=== PATIENT | male | born 1950 | race Caucasian/White ===

== ENCOUNTER 2020-02-01 15:47 | Outpatient (REF) | payer MEDICARE, BC, SELFPAY ==
[2020-02-02 08:34] LABS: PSA, Screening 5.1 ng/mL (0.0-4.5)
== END 2020-02-01 16:07 ==
LOC: NCHCN 15:47
PROVIDERS: PCP Physician Assistant; Visit Provider Physician Assistant
DX: N40.0 Benign prostatic hyperplasia without lower urinary tract symptoms (principal); Z12.5 Encounter for screening for malignant neoplasm of prostate
CPT/HCPCS: 84153

== ENCOUNTER 2020-03-27 15:34 | Outpatient (REF) | payer MEDICARE, SELFPAY ==
[2020-03-27 19:41] LABS: Calculated LDL 145 mg/dL (<100); Cholesterol 238 mg/dL (<200); HDL Cholesterol 71 mg/dL (40-60); Triglyceride 112 mg/dL (<150)
[2020-03-29 09:20] LABS: PSA, Screening 5.2 ng/mL (0.0-4.5)
== END 2020-03-27 15:54 ==
LOC: NCHCN 15:34
PROVIDERS: PCP Physician Assistant; Visit Provider Physician Assistant
DX: N40.0 Benign prostatic hyperplasia without lower urinary tract symptoms (principal); Z12.5 Encounter for screening for malignant neoplasm of prostate; E78.5 Hyperlipidemia, unspecified
CPT/HCPCS: 80061; 84153

== ENCOUNTER 2020-09-30 19:00 | Outpatient (REF) | payer MEDICARE, SELFPAY ==
[2020-09-30 14:03] LABS: Calculated LDL 147 mg/dL (<100); Cholesterol 240 mg/dL (<200); HDL Cholesterol 82 mg/dL (40-60); Triglyceride 55 mg/dL (<150)
[2020-09-30 22:33] LABS: PSA, Screening 5.1 ng/mL (0.0-4.5)
== END 2020-09-30 19:20 ==
LOC: NCHCN 19:00
PROVIDERS: PCP Physician Assistant; Visit Provider Physician Assistant
DX: N40.0 Benign prostatic hyperplasia without lower urinary tract symptoms (principal); E78.5 Hyperlipidemia, unspecified
CPT/HCPCS: 80061; 84153

== ENCOUNTER 2020-10-31 11:35 | Outpatient (REF) | payer MEDICARE, SELFPAY ==
[2020-10-31 15:28] LABS: HCT 42.2 % (40.0-50.0); HGB 14.1 g/dL (13.5-17.5); MCH 31.8 pg (27.0-33.0); MCHC 33.4 % (32.0-36.0); MCV 95.3 fL (80-95); MPV 10.9 fL (8.0-11.0); Platelet Count 263 10^3/uL (130-400); RBC 4.43 10^6/uL (4.36-5.78); RDW 13.2 % (11.8-14.1); RDW-SD 46.5 fL; WBC 8.05 10^3/uL (4.4-10.8)
[2020-10-31 15:31] LABS: ALT 19 U/L (16-63); AST 19 U/L (15-37); Alkaline Phosphatase 87 U/L (46-116); BUN 21 mg/dL (7-18); Bilirubin, Total 0.9 mg/dL (0.2-1.0); CREATININE 1.2 mg/dL (0.70-1.30); Calcium 9.3 mg/dL (8.5-10.1); Chloride 105 mmol/L (98-107); Glucose 92 mg/dL (74-106); Potassium 4.4 mmol/L (3.5-5.1); Sodium 143 mmol/L (136-145); Total Protein 7.8 g/dL (6.4-8.2)
[2020-10-31 22:16] LABS: PSA, Diagnostic 6.2 ng/mL (0.0-4.5)
== END 2020-10-31 11:36 | disposition home or self-care (01) ==
LOC: NCHCN 11:35
PROVIDERS: PCP Physician Assistant; Visit Provider Physician Assistant
DX: R10.9 Unspecified abdominal pain (principal); R30.0 Dysuria
CPT/HCPCS: 80053; 85027; 84153

== ENCOUNTER 2020-11-04 00:19 | Outpatient (CLI) | payer MEDICARE, SELFPAY ==
[2020-11-04] MEDS: Omnipaque 350 MG/ML 50 ML BTL IJ (08:37)
[2020-11-04] MEDS: Breeza Beverage 473 ML BTL PO ×2 (08:37→08:38)
[2020-11-04] MEDS: Normal Saline - Diluent 50 ML VIAL IV (10:37)
[2020-11-04] MEDS: Omnipaque 350 MG/ML 100 ML BTL IJ (10:38)
--- NOTE | 2020-11-04 10:39 | DI.CT_ITS ---
EXAM: CT ABDOMEN PELVIS W CLINICAL HISTORY: ABD PAIN, R10.9. TECHNIQUE: Imaging Protocol: Axial computed tomography images with coronal and sagittal reformatted images were created and reviewed CONTRAST MATERIAL: Intravenous: Omnipaque 100cc Oral: None COMPARISON: No exams were available for comparison FINDINGS: VISUALIZED LUNG BASES: No nodules nor pleural effusions evident. ABDOMEN: There is no ascites. LIVER: There is a benign-appearing cyst in the left hepatic lobe which measures 2 by 1.6 cm. No othe r significant focal hepatic findings nor dilatation of intrahepatic ducts. GALLBLADDER/BILIARY: No obvious gallbladder pathology. CBD is not dilated. PANCREAS: No evidence of pancreatic mass nor dilatation of the pancreatic duct. SPLEEN: Spleen is not enlarged. No obvious intrasplenic lesions. Splenic and portal veins are paten t. ADRENALS: There are no significant adrenal masses. KIDNEYS: There is impressive bilateral hydronephrosis and bilateral hydroureter. Ureters diameters a re approximately 1.6 cm bilaterally. The urinary bladder is grossly distended and trabeculated and t he prostate gland is grossly enlarged. Outlet obstruction appearance.. ABDOMINAL AORTA: Abdominal aorta is not enlarged and there is no [id number] adenopat hy. ABDOMINAL WALL/GI: No evidence of significant anterior abdominal wall hernia. No bowel obstruction. PELVIS: GI: No evidence of appendicitis.Sigmoid diverticuli. No evidence of obvious acute diverticulitis. LYMPH NODES: There is no intrapelvic nor inguinal adenopathy. REPRODUCTIVE: Prostate gland is grossly enlarged lobulated and is causing outlet obstruction. URINARY BLADDER: Grossly distended OSSEOUS: There is a subacute nondisplaced fracture of the left 11th rib with some callus formation. There is also a fracture of the left transverse process of L2, age indeterminate. No lytic osseous l esions. No blastic osseous lesions seen. IMPRESSION: 1. There is very prominent bilateral hydronephrosis and hydroureter as well as a grossly distended ur inary bladder. Prostate gland is enlarged and lobulated and is most probably causing outlet obstruct ion resulting in all of the above. Urology consultation recommended. 2. There is a solitary benign cyst in the liver-left hepatic lobe measuring 20 x 16 millimeters. No other focal hepatic findings. 3. No lytic nor blastic osseous lesions. 4. Healing left 11 rib fracture. Also fracture of L2 left transverse process, age indeterminate. RADIATION DOSE DELIVERED: Total DLP DATA REPOSITORY: All CT scans at this facility are submitted to the National Radiology Data Registry (NRDR) Dose Index Registry (DIR) with the [employer] (ACR). RADIATION OPTIMIZATION: All CT scans at this facility use at least one of these dose optimization te chniques: automated exposure control; mA and/or kV adjustment per patient size (includes targeted exa ms where dose is matched to clinical indication); or iterative reconstruction.
== END 2020-11-04 00:20 ==
PROVIDERS: PCP Physician Assistant; Visit Provider Physician Assistant
DX: N13.30 Unspecified hydronephrosis (principal); N13.4 Hydroureter; N40.0 Benign prostatic hyperplasia without lower urinary tract symptoms; K76.89 Other specified diseases of liver; S22.32XA Fracture of one rib, left side, initial encounter for closed fracture; S32.029A Unspecified fracture of second lumbar vertebra, initial encounter for closed fracture
CPT/HCPCS: 74177; J3490; Q9967

== ENCOUNTER 2020-12-22 10:38 | Emergency (ER) | payer MEDICARE, SELFPAY ==
[2020-12-22 10:44] VITALS: BP 141/90; PULSE 74; RESP 16; TEMP 35.9; O2SAT 98
[2020-12-22] MEDS: Lidocaine 2% Jelly 11 ML SYR UR (10:45)
--- NOTE | 2020-12-22 11:01 | W.ED.GENAD ---
Discharge Plan Disposition Patient Disposition: HOME Condition: Improving Discharge Details Clinical Impression: Acute urinary retention Primary Care Provider: Lv Kevin ED Provider: Randall Roberts Home Meds and New Rx's Prescriptions: Continued finasteride 5 mg tablet 5 mg PO DAILY RF: 0 Discharge Instructions Instructions: Urinary Retention in Men (ED) Additional Instructions: We will ask our care management team to arrange a follow-up for you at [facility] urology for repeat voiding trial. Leave catheter in place to leg bag until seen by urology. Return if you develop a fever, recurrent abdominal pain, or any other acute concerns. Medical Decision Making 70-year-old male presents from home. He was diagnosed with urinary bladder outlet obstruction in October for which she has been seen by the urology department at [facility]. He had an indwelling [place] catheter that was removed on Wednesday, with plan for home intermittent self-catheterization that was successful yesterday but with some difficulty. Today, patient unable to successfully self catheterize and feels suprapubic bloating and mild pressure. He has otherwise been well. Bedside bladder scanner with greater than 650 cc of retained urine. Viscous lidocaine was administered to urethra and wor[place] catheter placed by nursing staff with good return of urine. We will ask care management to assist in arranging follow-up for the patient with [facility] urology this week. He will be sent home with a leg bag. He is stable and improved. HPI General Mode of arrival: ambulatory. Date/Time Provider Initiated Documentation: 12/22/20 10:39. Limitations to Documentation: no limitations. Information obtained by: patient. History of Present Illness 70 year old M presents to the emergency department with the chief complaint of Urinary obstruction, described as moderate and similar to prior episodes, and is localized to the abdomen, pelvis and genitals. Patient reports no radiation. Patient started experiencing this hour(s) and it has been constant. No relieving factors improve symptom(s), No exacerbating factors reported . Patient notes no other symptoms.. Patient did receive the following treatments prior to arrival, none Related Data Home Medications Medication Instructions Recorded Confirmed finasteride 5 mg PO DAILY 12/22/20 12/22/20 Allergies Allergy/AdvReac Type Severity Reaction Status Date / Time No Known Allergies Allergy Unverified 12/22/20 10:50 General Stated Complaint: Urinary SANTOS: 3 Review of Systems Narrative: 6 systems reviewed and otherwise negative PFSH Social History Smoking/Tobacco Use Status: Never Smoking risk assessment performed?: Yes Drug use: Never Exam Narrative Exam Narrative: GEN: awake, alert, oriented 3. Pleasant, well groomed, interactive. HEAD: Normocephalic, atraumatic EYES: PERRL, EOMI NECK: Full ROM, no RAMSEY, no menigismus CHEST/RESP: Nontender, clear to auscultation bilateral, no wheeze/rhonchi/rales CARDIOVASCULAR: RRR, no murmur, rub olesya. 2+ Rad pulse bilateral ABDOMEN: Soft, minimal suprapubic tenderness, no mass. +Bowel sounds EXT: Full ROM, no edema, no rash Neuro: Grossly normal neurologic exam, conversant, interactive. Psych: Speech fluent, thoughts congruent, affect normal Course Vital Signs Vital signs: Vital Signs Temperature 35.9 C L 12/22/20 10:44 Pulse 74 12/22/20 10:44 Respiratory Rate 16 12/22/20 10:44 Blood Pressure 141/90 H 12/22/20 10:44 Pulse Oximetry 98 12/22/20 10:44 Temperature 35.9 C L 12/22/20 10:44 Temperature Source Skin 12/22/20 10:44 Pulse 74 12/22/20 10:44 Respiratory Rate 16 12/22/20 10:44 Respiratory Effort Non-Labored 12/22/20 10:44 Blood Pressure 141/90 H 12/22/20 10:44 Blood Pressure Position Sitting 12/22/20 10:44 Pulse Oximetry 98 12/22/20 10:44 Oxygen Delivery Method Room Air 12/22/20 10:44 Oxygen Flow Rate 0 12/22/20 10:44 Pain Level 0 12/22/20 10:44
--- NOTE | 2020-12-22 11:20 | NUR.NOTE ---
Nursing Note: Referral given to Care Management for follow up with [facility]. They are familiar with this patient. Leeanne Portillo
--- NOTE | 2020-12-23 12:28 | CMPROGNOTE_ITS ---
- If Service Date Differs Date of service: 12/23/20 Time of Service: 12:28 Care Management Progress Note Sean is seen in the ED for acute urinary retention. At the request of ED provider, CM coordinates a referral to [facility] [place] [facility] to assist patient in obtaining a follow up appointment.
== END 2020-12-22 11:38 | disposition home or self-care (01) ==
PROVIDERS: Emergency Provider Emergency Medicine; PCP Physician Assistant
DX: N40.1 Benign prostatic hyperplasia with lower urinary tract symptoms (principal); R33.8 Other retention of urine
CPT/HCPCS: 51702; 99283

== ENCOUNTER 2021-01-27 21:11 | Outpatient (REF) | payer MEDICARE, SELFPAY | END 2021-01-27 21:12 | disposition home or self-care (01) | LOC: LBN 21:11 | PROVIDERS: PCP Physician Assistant; Visit Provider Urology | DX: R33.9 Retention of urine, unspecified (principal) | CPT/HCPCS: 87086 ==

== ENCOUNTER 2021-04-08 09:46 | Outpatient (REF) | payer MEDICARE, SELFPAY ==
[2021-04-08 20:54] LABS: Anion Gap 8.1 mmol/L (3-11); BUN 14 mg/dL (7-18); CO2 27.9 mmol/L (21.0-32.0); Calcium 9.1 mg/dL (8.5-10.1); Calculated LDL 159 mg/dL (<100); Chloride 106 mmol/L (98-107); Cholesterol 248 mg/dL (<200); Glucose 98 mg/dL (74-106); HDL Cholesterol 77 mg/dL (40-60); Potassium 4.7 mmol/L (3.5-5.1); Sodium 142 mmol/L (136-145); Triglyceride 63 mg/dL (<150)
[2021-04-09 18:15] LABS: PSA, Screening 1.7 ng/mL (0.0-4.5)
== END 2021-04-08 09:47 | disposition home or self-care (01) ==
LOC: NCHCN 09:46
PROVIDERS: PCP Physician Assistant; Visit Provider Physician Assistant
DX: E78.5 Hyperlipidemia, unspecified (principal); N40.0 Benign prostatic hyperplasia without lower urinary tract symptoms
CPT/HCPCS: 80048; 80061; 84153

== ENCOUNTER 2022-04-21 14:57 | Outpatient (REF) | payer MEDICARE, SELFPAY ==
[2022-04-21 16:36] LABS: HCT 46.1 % (40.0-50.0); HGB 15.5 g/dL (13.5-17.5); MCH 31.6 pg (27.0-33.0); MCHC 33.6 % (32.0-36.0); MCV 94 fL (80-95); MPV 11.1 fL (8.0-11.0); Platelet Count 219 10^3/uL (130-400); RDW 13.6 % (11.8-14.1); RDW-SD 47.4 fL; WBC 7.53 10^3/uL (4.4-10.8)
[2022-04-21 17:24] LABS: Anion Gap 8.1 mmol/L (3-11); BUN 17 mg/dL (7-18); CO2 26.9 mmol/L (21.0-32.0); Calcium 9.1 mg/dL (8.5-10.1); Calculated LDL 148 mg/dL (<100); Chloride 104 mmol/L (98-107); Cholesterol 231 mg/dL (<200); Glucose 94 mg/dL (74-106); HDL Cholesterol 69 mg/dL (40-60); Potassium 4.2 mmol/L (3.5-5.1); Sodium 139 mmol/L (136-145); Triglyceride 70 mg/dL (<150)
[2022-04-21 23:11] LABS: PSA, Screening 2.8 ng/mL (<=6.5)
== END 2022-04-21 14:58 | disposition home or self-care (01) ==
LOC: NCHCN 14:57
PROVIDERS: PCP Physician Assistant; Visit Provider Physician Assistant
DX: E78.5 Hyperlipidemia, unspecified (principal); N40.0 Benign prostatic hyperplasia without lower urinary tract symptoms; Z12.5 Encounter for screening for malignant neoplasm of prostate
CPT/HCPCS: 80048; 80061; 84153; 85027

== ENCOUNTER 2023-05-06 19:17 | Outpatient (REF) | payer MEDICARE, SELFPAY ==
[2023-05-06 15:12] LABS: HCT 47.1 % (40.0-50.0); HGB 15.7 g/dL (13.5-17.5); MCH 31.3 pg (27.0-33.0); MCHC 33.3 % (32.0-36.0); MCV 94 fL (80-95); MPV 10.5 fL (8.0-11.0); Platelet Count 234 10^3/uL (130-400); RBC 5.01 10^6/uL (4.36-5.78); RDW 13.6 % (11.8-14.1); RDW-SD 47.2 fL; WBC 8.09 10^3/uL (4.4-10.8)
[2023-05-06 15:29] LABS: ALT 31 U/L (16-63); AST 24 U/L (15-37); Albumin 3.9 g/dL (3.4-5.0); Alkaline Phosphatase 82 U/L (46-116); Anion Gap 8.2 mmol/L (3-11); BUN 16 mg/dL (7-18); Bilirubin, Total 0.8 mg/dL (0.2-1.0); CO2 27.8 mmol/L (21.0-32.0); CREATININE 0.9 mg/dL (0.70-1.30); Calcium 9.1 mg/dL (8.5-10.1); Calculated LDL 161 mg/dL (<100); Chloride 107 mmol/L (98-107); Cholesterol 250 mg/dL (<200); Estimated GFR 91.31 (mL/min/1.73m2); Glucose 103 mg/dL (74-106); HDL Cholesterol 78 mg/dL (40-60); Potassium 4.4 mmol/L (3.5-5.1); Sodium 143 mmol/L (136-145); Total Protein 7.4 g/dL (6.4-8.2); Triglyceride 56 mg/dL (<150)
[2023-05-06 23:14] LABS: PSA, Screening 2.9 ng/mL (<=6.5)
== END 2023-05-06 19:18 | disposition home or self-care (01) ==
LOC: NCHCN 19:17
PROVIDERS: PCP Physician Assistant; Visit Provider Physician Assistant
DX: Z00.00 Encounter for general adult medical examination without abnormal findings (principal)
CPT/HCPCS: 80053; 80061; 84153; 85027

== ENCOUNTER 2024-05-24 10:43 | Outpatient (CLI) | payer MEDICARE, SELFPAY ==
[2024-05-24 08:49] LABS: ALT 27 U/L (16-63); AST 22 U/L (15-37); Albumin 3.7 g/dL (3.4-5.0); Alkaline Phosphatase 88 U/L (46-116); Anion Gap 6.3 mmol/L (3-11); BUN 16 mg/dL (7-18); Bilirubin, Total 1.03 mg/dL (0.2-1.0); CO2 29.7 mmol/L (21.0-32.0); CREATININE 0.9 mg/dL (0.70-1.30); Calculated LDL 136 mg/dL (<100); Chloride 105 mmol/L (98-107); Cholesterol 224 mg/dL (<200); Estimated GFR 90.74 (mL/min/1.73m2); Glucose 100 mg/dL (74-106); HDL Cholesterol 82 mg/dL (40-60); Potassium 4.1 mmol/L (3.5-5.1); Sodium 141 mmol/L (136-145); Total Protein 7.5 g/dL (6.4-8.2); Triglyceride 34 mg/dL (<150)
[2024-05-24 18:41] LABS: PSA, Screening 3.7 ng/mL (<=6.5)
== END 2024-05-24 10:44 | disposition home or self-care (01) ==
LOC: LBO 10:43
PROVIDERS: PCP Physician Assistant; Visit Provider Physician Assistant
DX: E78.5 Hyperlipidemia, unspecified (principal); N40.1 Benign prostatic hyperplasia with lower urinary tract symptoms
CPT/HCPCS: 36415; 80053; 80061; 84153

== ENCOUNTER 2025-05-24 09:01 | Outpatient (CLI) | payer MEDICARE, SELFPAY ==
[2025-05-24 08:22] LABS: ALT 27 U/L (16-63); AST 21 U/L (15-37); Albumin 4.0 g/dL (3.4-5.0); Alkaline Phosphatase 86 U/L (46-116); Anion Gap 2.5 mmol/L (3-11); BUN 16 mg/dL (7-18); Bilirubin, Total 0.9 mg/dL (0.2-1.0); CO2 31.5 mmol/L (21.0-32.0); Calcium 9.4 mg/dL (8.5-10.1); Chloride 105 mmol/L (98-107); Estimated GFR 90.18 (mL/min/1.73m2); Glucose 105 mg/dL (74-106); Potassium 4.3 mmol/L (3.5-5.1); Sodium 139 mmol/L (136-145); Total Protein 7.8 g/dL (6.4-8.2)
[2025-05-24 08:37] LABS: Calculated LDL 151 mg/dL (<100); Cholesterol 240 mg/dL (<200); HDL Cholesterol 80 mg/dL (>or=40); Triglyceride 45 mg/dL (<150)
[2025-05-24 18:17] LABS: PSA, Screening 3.2 ng/mL (<=6.5)
== END 2025-05-24 09:02 | disposition home or self-care (01) ==
LOC: LBO 09:02
PROVIDERS: PCP Physician Assistant; Visit Provider Physician Assistant
DX: E78.5 Hyperlipidemia, unspecified (principal); Z12.5 Encounter for screening for malignant neoplasm of prostate
CPT/HCPCS: 36415; 80053; 80061; 84153